=== PATIENT | male | born 1960 | race Caucasian/White ===

== ENCOUNTER 2017-08-09 08:47 | Day surgery (SDC) | payer BC ==
[2017-08-05 14:34] LABS: HEMATOCRIT 45.5 % (40.0-51.0); HEMOGLOBIN 15.2 g/dL (13.6-17.8); MEAN CORPUS HGB CONC 33.4 g/dL (32.0-36.0); MEAN CORPUSCULAR HEMOGLOB 30.3 pg (26.0-34.0); MEAN CORPUSCULAR VOLUME 90.6 fL (80-100); MEAN PLATELET VOLUME 10.1 fL (9.2-13.0); PLATELET COUNT 225 10/3/uL (150-400); RBC DISTRIBUTION WIDTH 13.3 % (12.0-16.0); RED CELL COUNT 5.02 10/6/uL (4.7-6.1); WHITE BLOOD CELLS 6.2 10/3/uL (4.5-10.5)
[2017-08-05 14:42] LABS: MANUAL DIFF YES %; PROTIME (NOT ORD) 13.1 SEC (12.0-14.5)
[2017-08-05 14:55] LABS: PARTIAL THROMBO TIME 21.6 SEC (22.5-37.2)
[2017-08-05 15:10] LABS: A/G RATIO 1.5 (0.7-1.9); ALBUMIN 4.1 G/DL (3.5-5.0); ALKALINE PHOSPHATASE 87 U/L (45-117); BUN (BLOOD UREA NITROGEN) 14 MG/DL (6-23); CALCIUM, SERUM 9.1 MG/DL (8.5-10.4); CHLORIDE, SERUM 107 MMOL/L (96-112); CO2 (CARBON DIOXIDE) 28 MMOL/L (24-34); CREATININE 1.06 MG/DL (0.70-1.30); GFR AFRICAN AMERICAN 90 ML/MIN (>=60); GFR NON AFRICAN AMERICAN 78 ML/MIN (>=60); GLOBULIN 2.8 G/DL (2.5-4.1); GLUCOSE, SERUM 93 MG/DL (60-99); POTASSIUM, SERUM 4.2 MMOL/L (3.5-5.3); SGOT(AST) 20 U/L (5-40); SGPT(ALT) 24 U/L (5-65); SODIUM, SERUM 140 MMOL/L (135-148); TOTAL BILIRUBIN 0.5 MG/DL (0-1.2); TOTAL PROTEIN 6.9 G/DL (6.0-8.5)
[2017-08-05 15:16] LABS: EOSINOPHILS 3 %; EOSINOPHILS ABSOLUTE (CALC) 0.19 10/3/uL (0.0-0.53); LYMPHOCYTES 30 %; LYMPHOCYTES ABSOLUTE (CALC) 1.86 10/3/uL (0.67-4.30); MONOCYTES 13 %; MONOCYTES ABSOLUTE (CALC) 0.81 10/3/uL (0.21-1.20); NEUTROPHILS ABSOLUTE (CALC) 3.35 10/3/uL (2.02-8.40); PLATELET ESTIMATE ADQ (ADEQUATE); RBC MORPHOLOGY NORM (NORMAL); SEGMENTED NEUTROPHIL (0) 54 %; TOTAL NUCLEATED CELLS 100
[~2017-08-09] VITALS: Ht 190.5 cm; Wt 96.2 kg
--- NOTE | ~2017-08-09 | OP ---
Record Of Operation [facility] [address] [place]. [address] NAME: EDUARD FANG : 58 STATUS : [facility]#: [id number] AGE: 56 ADM/REG DATE : 08/09/17 MR#: [id number] REPORT SERV DATE: 08/09/17 DICTATED BY: WILLIE SPANGLER III DATE: 08/09/17 REPORT STATUS : Draft TRANSCRIBED BY: MODL DATE: 08/09/17 DATE OF PROCEDURE: 08/09/2017 PREOPERATIVE DIAGNOSIS: Bilateral inguinal hernias, right greater than left. The left was occult and not symptomatic, but definitely present on physical exam. POSTOPERATIVE DIAGNOSES: Bilateral inguinal hernias, right greater than left. The left was occult and not symptomatic, but definitely present on physical exam with the right being greater than left bilateral inguinal hernias which were indirect in nature. PROCEDURE: Bilateral inguinal hernia repairs. Laparoscopically performed using prosthetic mesh with excision bilateral cord lipomas and bilateral inguinal blocks. The mesh used was Prolene mesh. Product code, Bigvest[employer], lot number [id number]. The other Prolene mesh was used was product PMII, lot [id number], both were 7.6 x 15 cm size all of both meshes were used. ANESTHESIA: General with endotracheal tube, supplemented with 0.5% Marcaine with epinephrine for bilateral inguinal blocks, blocking the ilioinguinal and iliopubic nerves in both right and left side. SPECIMEN: The specimen removed was cord lipomas from each side. BAND STRAIGHTENER: Maira Spangler RN, [facility]. PROCEDURE IN DETAIL: The patient was prepped and draped in routine fashion with adequate general anesthesia. The area of the abdomen approached through an infraumbilical open trocar technique procedure placing a 12 mm balloon port into the peritoneal cavity under direct visualization. The balloon port was inserted and inflated. The abdominal cavity insufflated 15 mmHg pressure with carbon dioxide gas. The abdomen was then insufflated. Internal exam performed after placement of two 5 mm trocars both at the midclavicular line at the level of the umbilicus under video observation. The omentum was up over the liver, which was gently removed down to position with the gallbladder could be inspected and noted to be unremarkable. The patient was noted to have an ejection fraction of 35%, which was a borderline dysfunctional value, but was on the normal side. The ultrasound had been negative. The remainder of the internal exam was unremarkable except for a few adhesions to the left hernia from the sigmoid colon, which had to be lysed. The appendix was unremarkable in a non-retrocecal location. The abdomen was then approached inverting the indirect right inguinal hernia out into the peritoneal cavity and an incision made across the anterior retroperitoneum. Spermatic cord was skeletonized, removing some spermatic cord lipoma and after the cord had been skeletonized, the inferior epigastric artery and vein were identified and skeletonized as well. A large defect on the lateral aspect of the spermatic cord was then cleared of surrounding adhesions and filled with two pieces of Surgicel as a filler for the space. After this had been done, areas were completely dissected in the area of Tyshawn ligament identified and skeletonized as well as the floor of the pelvic inguinal region. The epigastric artery was seen and protected. After the Record Of Operation [facility] [address] [facility] [place]. [address] NAME: EDUARD FANG : 58 STATUS : [facility] PAT#: [id number] AGE: 56 ADM/REG DATE : 08/09/17 MR#: [id number] REPORT SERV DATE: 08/09/17 DICTATED BY: WILLIE SPANGLER III DATE: 08/09/17 REPORT STATUS : Draft TRANSCRIBED BY: JASWANT DATE: 08/09/17 dissection had been cleared off and surrounding cremasteric muscles removed to skeletonized the spermatic cord and clearing it of lipomatous tissues a piece of Prolene mesh, size 7.6 cm x 15 cm was fashioned with a keyhole opening in the medial aspect and tails applied. This was introduced peritoneal cavity and secured with ProTacker reji. The tails were placed on the superior aspect behind the inferior epigastric artery and vein and inferiorly beneath the spermatic cord, which had been skeletonized. The tails were then overlapped on the Tyshawn ligament, and secured with several reji of ProTacker. The superior edge of the Prolene mesh was then secured to the conjoined tendinous portion of the internal oblique muscle with ProTacker along the side. There were no reji placed inferiorly. After this had been completed with good floor coverage, the dissection planes were re-peritonealized using the previous sac and retroperitoneal tissues which had been reflected inferiorly that were secured effectively isolating the prosthetic mesh from the peritoneal cavity. This was accomplished with ProTackers after the use of absorbable tacks was not successful. After this was done, attention was drawn to the left side and a similar repair carried out. The adhesions to the sigmoid colon were taken down with cautery current for hemostasis and the sigmoid colon reflected inferiorly. An incision on this made in the anterior neck of the left hernia sac which was inverted into the peritoneal cavity and skeletonization of spermatic cord performed on the right side. Cord lipomatous tissues were then removed to skeletonized the neck of the spermatic cord and the hernia defect identified and dissection carried out as on the right side. Tyshawn ligament was identified and cleared of surrounding tissues. The inferior epigastric vessels were also skeletonized as was spermatic cord. Surgicel was then placed down the defect to isolate the space on the left side as this was done on the right. The mesh was then placed in a similar fashion. Fashioning the Prolene mesh with tails to the medial aspect, which were overlapped and stapled and Tyshawn ligament with ProTacker. The edges of the superior aspect of the mesh were secured to the conjoined tendon, the ProTacker. After this was done, mesh secured superiorly. The areas were then re-peritonealized with the ProTacker to bring the retroperitoneum previous sac over isolating the prosthetic mesh. After this was done, all areas reinspected. Irrigation carried out. Suctioning out the irrigant and the procedure concluded after removing all trocars under video observation. The larger 12 mm trocar in the infraumbilical area was closed with [id number] sutures of 0 Vicryl. The 5 mm trocars were closed interrupted 3-0 Vicryl sutures with skin level Dermabond applied to all areas and Band-Aids applied. Bilateral inguinal blocks were then performed using 30 mL 0.5% Marcaine with epinephrine locally infiltrating to control the ilioinguinal and iliopubic nerves for an inguinal block. This was done with 15 mL of Marcaine with epinephrine on either side. After this was done, the procedure was concluded and scrotal supporter applied and the procedure ended with the patient being sent to the recovery area. GENIA/JASWANT Willie Record Of Operation [facility] [address] [place]. [address] NAME: EDUADR FANG : 58 STATUS : [facility]#: [id number] AGE: 56 ADM/REG DATE : 08/09/17 MR#: [id number] REPORT SERV DATE: 08/09/17 DICTATED BY: WILLIE SPANGLER III DATE: 08/09/17 REPORT STATUS : Draft TRANSCRIBED BY: MODL DATE: 08/09/17 Aníbal NICE M.D. / [id number] CC: Monica Obregon III, M.D. Michael Goodman, M.D.
[~2017-08-09 08:47] MED LIST: FLOMAX4 PO; GLUCOSAMINEPO PO; PRILO PO
== END 2017-08-09 16:59 | disposition home or self-care (01) ==
LOC: SDC 08:47
PROVIDERS: Surgery
PROC: 0YUA4JZ Supplement Bilateral Inguinal Region with Synthetic Substitute, Percutaneous Endoscopic Approach (ICD-10-PCS; principal; 2017-08-09 09:45)
DX: K40.20 Bilateral inguinal hernia, without obstruction or gangrene, not specified as recurrent (principal); D17.6 Benign lipomatous neoplasm of spermatic cord; G47.33 Obstructive sleep apnea (adult) (pediatric); K21.9 Gastro-esophageal reflux disease without esophagitis; Z88.0 Allergy status to penicillin; Z98.890 Other specified postprocedural states
CPT/HCPCS: 80053; 85025; 85610; 85730; 88304; 93005; A9270-GY; C1781; J0690; J2250; J2270; J2405; J2710; J3010